=== PATIENT | female | born 1980 | race Caucasian/White ===

== ENCOUNTER → 2024-06-09 | Outpatient (CLI) | payer MEDICAID, SELFPAY ==
--- NOTE | 2024-06-09 08:00 | XR_ITS ---
Examination: Screening digital mammography, bilateral Computer aided detection 3-D breast Tomosynthesis, bilateral Date and time of exam: June 09, 2024 0807 hrs. Compared to mammograms dating to January 27, 2021 Indication: Screening Technique: Nonmagnified MLO, CC views of the breasts to been obtained, reconstructed from 3-D Tomosynthesis images. R2 computer aided detection program utilized for evaluation of suspicious masses and/or abnormal calcifications. 3-D Tomosynthesis images obtained. Findings: The breasts are heterogeneously dense, which may obscure small masses Benign calcifications. No interval suspicious masses Impression: BI-RADS category II: Benign Findings. Recommend 1 year follow-up mammogram. Given the heterogeneously dense nodular breast architecture, consider baseline bilateral breast sonography follow-up
== END | disposition home or self-care (01) ==
LOC: CDIM 07:41
PROVIDERS: Referring Provider Obstetrics & Gynecology; Visit Provider Obstetrics & Gynecology
DX: Z12.31 Encounter for screening mammogram for malignant neoplasm of breast (principal); R92.323 Mammographic fibroglandular density, bilateral breasts; R92.1 Mammographic calcification found on diagnostic imaging of breast
CPT/HCPCS: 77063; 77067